=== PATIENT | female | born 1940 | race Caucasian/White ===

== ENCOUNTER → 2023-07-09 | Day surgery (SDC) | payer MEDICARE, BC ==
[~2023-07-09] MED LIST: PROPOFOL 20 ML ONE; hydrALAZINE 20 MG/ML VIAL ONE
== END ==
LOC: CSHSDC 08:43
PROVIDERS: ATTEND Internal Medicine Cardiovascular Disease
PROC: B246ZZ4 Ultrasonography of Right and Left Heart, Transesophageal (ICD-10-PCS; principal; 2023-07-09)
DX: I08.2 Rheumatic disorders of both aortic and tricuspid valves (principal); R01.1 Cardiac murmur, unspecified; I10 Essential (primary) hypertension; E78.5 Hyperlipidemia, unspecified; K21.9 Gastro-esophageal reflux disease without esophagitis; Z87.891 Personal history of nicotine dependence; Z88.1 Allergy status to other antibiotic agents; Z79.899 Other long term (current) drug therapy; Z90.710 Acquired absence of both cervix and uterus; Z90.89 Acquired absence of other organs; Z79.82 Long term (current) use of aspirin
CPT/HCPCS: 93312; J0360; J2704

== ENCOUNTER 2024-02-12 08:52 | Outpatient (CLI) | payer MEDICARE, BC | END 2024-02-12 08:53 | disposition home or self-care (01) | LOC: CSHMAMMO 08:52 | PROVIDERS: ATTEND Family Medicine | DX: N64.89 Other specified disorders of breast (principal); Z00.00 Encounter for general adult medical examination without abnormal findings; I10 Essential (primary) hypertension; E07.9 Disorder of thyroid, unspecified | CPT/HCPCS: 77065; 80061; 84436; 84480; G0279; 36415; 80053; 84443; 85025 ==